=== PATIENT | female | born 1970 | race Caucasian/White ===

== ENCOUNTER → 2017-09-14 | Outpatient (CLI) | payer BC ==
[~2017-09-14] MED LIST: ASPI81TA28 PO; CLB/200 PO; LISI-787 PO; MEDR10TA PO; METH500T37 PO; RXC5 PO; VNTHFA/IN INH
[2017-09-14 17:24] LABS: BASO % 0.4 %; BASO ABS # 0.03 K/uL (0-0.2); COMPLETE YES; EOS % 8.4 %; HEMATOCRIT 39.9 % (37-47); IG% 0.3 %; LYMPH % 28.8 %; LYMPH ABS # 1.99 K/uL (1.2-3.4); MEAN CELL VOLUME 88.3 fL (80-100); MEAN CORPUSCULAR HEMOGLOBIN 28.8 pg (25-34); MEAN CORPUSCULAR HGB CONC 32.6 g/dl (32-36); MEAN PLATELET VOLUME 10.3 fL (7.4-10.4); MONO % 5.2 %; NEUT % 56.9 %; PLATELET COUNT 254 K/uL (130-400); RED BLOOD COUNT 4.52 M/uL (4.2-5.4)
[2017-09-14 17:53] LABS: BLOOD UREA NITROGEN 17 mg/dl (7-18); BUN/CREATININE RATIO 15.5 (10-20); CALCIUM 8.9 mg/dl (8.5-10.1); CARBON DIOXIDE 26 mmol/L (21-32); CHLORIDE 105 mmol/L (98-107); CREATININE 1.09 mg/dl (0.60-1.20); GLUCOSE 89 mg/dl (70-99); POTASSIUM 3.7 mmol/L (3.5-5.1); SODIUM 140 mmol/L (136-145)
== END | disposition home or self-care (01) ==
LOC: C.LAB 16:55
PROVIDERS: ATTEND Orthopaedic Surgery
DX: Z01.812 Encounter for preprocedural laboratory examination (principal); M16.10 Unilateral primary osteoarthritis, unspecified hip

== ENCOUNTER → 2017-09-21 | Day surgery (SDC) | payer BC ==
[2017-09-15 12:11] VITALS: Ht 160 cm; Wt 96.8 kg
[~2017-09-21] VITALS: Ht 160 cm; Wt 96.8 kg
[~2017-09-21] MED LIST changes: +ATROPINE SULFATE 0.1 MG/ML 5ML SYR IV PRN; +BUPIVACAINE 0.5 % 5 MG/1 ML MPF 30ML VIAL ONE; -CLB/200 PO; +CLINDAMYCIN PHOS 150 MG/ML 2 ML VIAL IV SCH; +DEXAMETHASONE SOD INJ 4 MG/ML VIAL ONE; +EpHEDrine SULFATE INJ 50 MG/ML AMP IV PRN; +FENTANYL CITRATE INJ 50 MCG/1 ML 2 ML VIAL IV PRN; +FENTANYL CITRATE INJ 50 MCG/1 ML 2 ML VIAL ONE; +LACTATED RINGER'S 1000ML 1,000 ML IV SCH; +LIDOCAINE HCL 2% 2 ML VIAL (20MG/ML) ONE; +LIDOCAINE HCL 2% LOCAL 20 ML VIAL ONE; -MEDR10TA PO; -METH500T37 PO; +MIDAZOLAM HCL 1 MG/ML 2ML VIAL ONE; +ONDANSETRON INJ 2 MG/ML 2 ML VIAL IV PRN; +ONDANSETRON INJ 2 MG/ML 2 ML VIAL ONE; +OXYC-57 PO; +OXYCODONE/ACETAMINOPHEN 5-325 TAB PO PRN; +PROPOFOL IV EMULSION 10 MG/ML 20 ML VIAL IV ONE; -RXC5 PO; +SODIUM CHLORIDE 0.9% 1000ML 1,000 ML IV SCH
--- NOTE | 2017-09-21 06:43 | History & Physical Bridge - [place] ---
H&P Re-Evaluation Bridge Note: I have examined the patient, reviewed the History & Physical and in the interval since the performance of the History & Physical I have noted the following changes of clinical significance: No changes noted
[2017-09-21 07:36] VITALS: TEMP 36.2
--- NOTE | 2017-09-21 07:36 | Discharge Instructions-SurgCtr ---
Discharge Instructions Date of Service Sep 21, 2017. Visit Reason for Visit: Right Hand Ganglion Cyst Discharge Discharge Diagnosis / Problem: SAME ABOVE Discharge Goals Goal(s): Decrease discomfort, Improve function Activity Recommendations Activity Limitations: as noted below Lifting Limitations: gradually increase as tolerated Exercise/Sports Limitations: until after follow-up appointment Shower/Bathe: keep incision dry Anesthesia . Post Anesthesia Instructions: If you have had General Anesthesia or IV Sedation: * Do not drive today. * Resume driving when surgeon permits. * Do not make important decisions or sign legal documents today. * Call surgeon for: 1. Temperature elevations greater than 101 degrees F. 2. Uncontrollable pain. 3. Excessive bleeding. 4. Persistent nausea and vomiting. 5. Medication intolerance (nausea, vomiting or rash). * For nausea and vomiting use only clear liquids such as: tea, soda, bouillon until nausea subsides, then gradually increase diet as tolerated. * If you have any concerns or questions, call your surgeon's office. If physician is unavailable and it is an emergency, call 911 or go to the nearest emergency room. . Instructions / Follow-Up Instructions / Follow-Up MEDICATIONS: * Resume previous medications unless instructed otherwise by your surgeon. * Always take pain medication on a full stomach or with food to avoid upset stomach. * Do not drink alcohol or drive while taking narcotics. * Ibuprofen or Tylenol may be taken if narcotic not needed. SPECIAL CARE INSTRUCTIONS: __ None _X_ Keep extremity elevated and iced x 48 hours; apply ice 20-30 minutes 8-10 times/day. May remove at night. __ Sling __24 hrs/day __ Remove at night __ Shoulder Immobilizer __ 24 hrs/day __ Remove at night _X_ Dressing __ Maintain until seen in office, may shower with plastic over site __ Remove dressings in 24-48 hours and then may shower __ Cover incisions with band-aids after showering __ Do not remove steri-strips KEEP INCISION AND DRESSING DRY AND INTACT FOR NEXT 5 DAYS. YOU CAN REMOVE DRESSING AFTER DAY 5 TO SHOWER. DRY AND COVER WITH BANDAID AFTERWARDS Call physician if chills or temperature rises above 102 degrees or pain unrelieved by prescribed pain medications at . . Diet Recommendations Home Diet: no limitations Procedures Procedures Performed: Right Hand Ganglion Cyst Excision Pending Studies Studies pending at discharge: no Medical Emergencies . Who to Call and When: Medical Emergencies: If at any time you feel your situation is an emergency, please call 911 immediately. . Non-Emergent Contact Non-Emergency issues call your: Primary Care Provider . . "Provider Documentation" section prepared by Tello Shah. .
--- NOTE | 2017-09-21 07:47 | OPERATIVE REPORT ---
DATE OF OPERATION: 09/21/2017 PREOPERATIVE DIAGNOSIS: Recurrent ganglion cyst of the right hand. POSTOPERATIVE DIAGNOSIS: Same. PROCEDURE: Excision ganglion cyst of the right hand. SURGEON: Tello Cunningham DO. PLAYERS ASSISTANT: Tello Shah PA-C, whose assistance was necessary for retraction and helping position the hand. ANESTHESIA: Local with sedation. COMPLICATIONS: None. CONDITION: Stable to PACU. INDICATIONS: Lisbeth is a pleasant 47-year-old female who has a history of multiple ganglions on her body. She had 1 removed from the dorsal aspect of her hand at an outside institution several years ago. Unfortunately, it returned. It is between the index and middle metacarpals and distorting the extensor mechanisms. It was becoming painful and she elected to undergo repeat excision. OPERATION AND FINDINGS: On 09/21/2017, she arrived at [facility] for the above procedure. She was seen in the preoperative holding area and the operative extremity was identified and signed. She was given a preoperative antibiotic, taken back to the operating room, laid on the table in supine position and given basic sedation. The right hand was then prepped and draped in sterile fashion. Time-out was done and the patient and operative extremity was properly identified. The surgical site was anesthetized with 2% lidocaine. The old incision was opened back up. Dissection was taken down through the fascia and a ganglion cyst was easily identified. Care was taken not to disrupt any of the neurovascular structures. It was fairly obvious where the ganglion communicated deep and because this is recurrent, a small 4-0 Vicryl suture was placed to close down the opening. This closed down nicely. The wound was then irrigated and closed with 4-0 nylon suture. She was placed in a soft dressing and taken to the postanesthesia care unit in stable condition. She tolerated the procedure well. I attest to the content of the Intraoperative Record and any orders documented therein. Any exception s are noted below.
[2017-09-21 08:04] VITALS: BP 107/72; PULSE 70; O2SAT 100
--- NOTE | 2017-09-21 08:14 | Anesthesia Progress Nt - [facility] ---
Anesthesia Post Op Note Date & Time Sep 21, 2017 at 08:14 Vital Signs Pain Intensity: 0 Vital Signs Past 12 Hours Date Time Temp Pulse Resp B/P (MAP) Pulse Ox O2 Delivery O2 Flow Rate FiO2 09/21/17 08:04 70 107/72 (84) 100 Room Air 09/21/17 07:36 36.2 12 109/73 (85) 97 Room Air 09/21/17 06:24 36.5 75 20 119/79 (92) 99 Room Air Notes Mental Status: alert / awake / arousable, participated in evaluation Pt Amnestic to Procedure: Yes Nausea / Vomiting: adequately controlled Pain: adequately controlled Airway Patency, RR, SpO2: stable & adequate BP & HR: stable & adequate Hydration State: stable & adequate Anesthetic Complications: no major complications apparent
--- NOTE | 2017-09-21 14:17 | [facility] Post Operative Brief Note ---
Immediate Operative Summary Operative Date Sep 21, 2017. Pre-Operative Diagnosis Right Hand Ganglion Cyst Post-Operative Diagnosis Same Procedure(s) Performed Right Hand Ganglion Cyst Excision Surgeon Dr. Manjinder Cunningham Machinist Supervisor Surgeon(s) Manjinder Shah PA-C Estimated Blood Loss 5 cc Findings as above Specimens None Complication(s) None Disposition Recovery Room / PACU
== END | disposition home or self-care (01) ==
LOC: X.SURG 06:16
PROVIDERS: ATTEND Orthopaedic Surgery
DX: M67.441 Ganglion, right hand (principal); I10 Essential (primary) hypertension

== ENCOUNTER → 2017-11-22 | Outpatient (CLI) | payer BC ==
[~2017-11-22] MED LIST changes: -ATROPINE SULFATE 0.1 MG/ML 5ML SYR IV PRN; -BUPIVACAINE 0.5 % 5 MG/1 ML MPF 30ML VIAL ONE; -CLINDAMYCIN PHOS 150 MG/ML 2 ML VIAL IV SCH; -DEXAMETHASONE SOD INJ 4 MG/ML VIAL ONE; -EpHEDrine SULFATE INJ 50 MG/ML AMP IV PRN; -FENTANYL CITRATE INJ 50 MCG/1 ML 2 ML VIAL IV PRN; -FENTANYL CITRATE INJ 50 MCG/1 ML 2 ML VIAL ONE; -LACTATED RINGER'S 1000ML 1,000 ML IV SCH; -LIDOCAINE HCL 2% 2 ML VIAL (20MG/ML) ONE; -LIDOCAINE HCL 2% LOCAL 20 ML VIAL ONE; -MIDAZOLAM HCL 1 MG/ML 2ML VIAL ONE; -ONDANSETRON INJ 2 MG/ML 2 ML VIAL IV PRN; -ONDANSETRON INJ 2 MG/ML 2 ML VIAL ONE; -OXYCODONE/ACETAMINOPHEN 5-325 TAB PO PRN; -PROPOFOL IV EMULSION 10 MG/ML 20 ML VIAL IV ONE; -SODIUM CHLORIDE 0.9% 1000ML 1,000 ML IV SCH
[2017-11-22 12:50] LABS: BASO % 0.6 %; BASO ABS # 0.03 K/uL (0-0.2); EOS % 6.1 %; EOS ABS # 0.31 K/uL (0-0.5); HEMATOCRIT 41.4 % (37-47); HEMOGLOBIN 13.8 g/dL (12.0-16.0); IG# 0.01 K/uL (0.00-0.02); LYMPH % 27.1 %; LYMPH ABS # 1.38 K/uL (1.2-3.4); MEAN CELL VOLUME 86.8 fL (80-100); MEAN CORPUSCULAR HEMOGLOBIN 28.9 pg (25-34); MEAN CORPUSCULAR HGB CONC 33.3 g/dl (32-36); MEAN PLATELET VOLUME 10.9 fL (7.4-10.4); MONO % 5.3 %; MONO ABS # 0.27 K/uL (0.11-0.59); NEUT % 60.7 %; PLATELET COUNT 264 K/uL (130-400); RED CELL DISTRIBUTION WIDTH CV 13.3 % (11.5-14.5); RED CELL DISTRIBUTION WIDTH SD 42.3 fL (36.4-46.3)
[2017-11-22 13:59] LABS: ALBUMIN 3.8 gm/dl (3.4-5.0); ALT/SGPT 31 U/L (12-78); AST/SGOT 22 U/L (15-37); BLOOD UREA NITROGEN 17 mg/dl (7-18); CALCIUM 9.1 mg/dl (8.5-10.1); CARBON DIOXIDE 26 mmol/L (21-32); CREATININE 0.99 mg/dl (0.60-1.20); GLUCOSE 96 mg/dl (70-99); SODIUM 136 mmol/L (136-145)
[2017-11-22 14:01] LABS: ALKALINE PHOSPHATASE 82 U/L (45-117); CHOLESTEROL 261 mg/dl (0-200); LDL CHOLESTEROL CALCULATED 180 mg/dl; TOTAL PROTEIN 7.4 gm/dl (6.4-8.2)
== END | disposition home or self-care (01) ==
LOC: C.LABPBG 10:55
PROVIDERS: ATTEND Nurse Practitioner Family
DX: Z13.1 Encounter for screening for diabetes mellitus (principal); Z13.220 Encounter for screening for lipoid disorders; I10 Essential (primary) hypertension

== ENCOUNTER 2017-12-28 09:51 | Observation (INO) | payer BC ==
[2017-12-21 10:30] VITALS: BMI 41.0
--- NOTE | 2017-12-21 11:05 | PAT Medication Instructions ---
Service Date Dec 21, 2017. Current Home Medication List Albuterol Hfa (Ventolin Hfa), 2-4 PUFFS INH Q6H PRN for SOB/Wheezing Aspirin (Aspirin Ec), 81 MG PO QAM Lisinopril/Hctz (Zestoretic 20MG/12.5MG), 0.5 TAB PO BID Medication Instructions For Your Scheduled Surgery - Check with surgeon for instructions: Aspirin (Aspirin Ec), 81 MG PO QAM - Hold the following medications the morning of surgery and the night prior to surgery: Lisinopril/Hctz (Zestoretic 20MG/12.5MG), 0.5 TAB PO BID - Take the following medications the morning of surgery with a sip of water: Albuterol Hfa (Ventolin Hfa), 2-4 PUFFS INH Q6H PRN for SOB/Wheezing (if needed) - Take the following medications as scheduled the night before surgery: Albuterol Hfa (Ventolin Hfa), 2-4 PUFFS INH Q6H PRN for SOB/Wheezing (if needed) If you have any questions please call us at [phone] or [phone] or [phone]
[2017-12-21 12:43] LABS: PTT PATIENT 27.9 SECONDS (21.0-31.0)
[~2017-12-28] VITALS: Ht 158.8 cm; Wt 105.0 kg
[2017-12-28] VITALS (7 sets, daily range): BP systolic 100–138; BP diastolic 67–79; PULSE 74–85; TEMP 36.2–36.8; O2SAT 93–100; Ht 158.8 cm; Wt 105.0 kg
[~2017-12-28 09:51] MED LIST changes: +ACETAMINOPHEN 1000 MG/100 ML IV IV ONE; +ATROPINE SULFATE 0.1 MG/ML 5ML SYR IV PRN; +CLINDAMYCIN 600 MG/54 ML D5W IV SCH; +EpHEDrine SULFATE INJ 50 MG/ML AMP IV PRN; +FENTANYL CITRATE INJ 50 MCG/1 ML 2 ML VIAL IV PRN; +FENTANYL CITRATE INJ 50 MCG/1 ML 2 ML VIAL ONE; +HYDROmorphone INJ 1 MG/ML SYR IV PRN; +HYDROmorphone INJ 2 MG/ML SYR/VIAL ONE; +LACTATED RINGER'S 1000ML 1,000 ML IV SCH; +LIDOCAINE HCL 2% 2 ML VIAL (20MG/ML) ONE; +METOCLOPRAMIDE HCL INJ 5 MG/ML 2 ML VIAL ONE; +MIDAZOLAM HCL 1 MG/ML 2ML VIAL ONE; +ONDANSETRON INJ 2 MG/ML 2 ML VIAL IV PRN; +ONDANSETRON INJ 2 MG/ML 2 ML VIAL ONE; -OXYC-57 PO; +PROPOFOL IV EMULSION 10 MG/ML 20 ML VIAL IV ONE
[2017-12-28] MEDS ORDERED: BUPIVACAINE 0.25% 30 ML VIAL ONE (10:05)
[2017-12-28] MEDS ORDERED: LIDOCAINE/EPINEPHRINE 1% 20 ML VIAL ONE (10:05)
--- NOTE | 2017-12-28 10:20 | History & Physical Bridge Note ---
H&P Re-Evaluation Bridge Note: I have examined the patient, reviewed the History & Physical and in the interval since the performance of the History & Physical I have noted the following changes of clinical significance: patient reports "pinched nerve" in back beginning Tuesday, discomfort improves when patient walks.
[2017-12-28] MEDS ORDERED: FENTANYL CITRATE INJ 50 MCG/1 ML 2 ML VIAL ONE ×2 (12:12→13:33)
[2017-12-28] MEDS ORDERED: PHENYLEPHRINE HCL INJ 10 MG/ML VIAL ONE (12:14)
[2017-12-28] MEDS ORDERED: KETAMINE HCL INJ 50 MG/ML 10 ML VIAL ONE (12:21)
[2017-12-28] MEDS ORDERED: EpHEDrine SULFATE INJ 50 MG/ML AMP ONE (12:38)
[2017-12-28] MEDS ORDERED: NEOSTIGMINE METHYLSULFATE 5 MG/5 ML SYR ONE (14:49)
[2017-12-28] MEDS ORDERED: GLYCOPYRROLATE INJ 0.2 MG/ML VIAL ONE (14:49)
--- NOTE | 2017-12-28 14:55 | [facility] Post Operative Brief Note ---
Immediate Operative Summary Operative Date Dec 28, 2017. Pre-Operative Diagnosis Bilateral Breast Hypertrophy Post-Operative Diagnosis Bilateral Breast Hypertrophy Procedure(s) Performed Bilateral Breast Reduction Surgeon Dr. Sanjana Luis Vice President Marketing & Development Surgeon(s) Sirisha Younger PA-C Estimated Blood Loss 25ML Findings Consistent with Post-Op Diagnosis Specimens Fresh Specimen: A.) Left Breast Tissue (802 grams) B.) Right Breast Tissue (630grams) both specimens sent out of room to lab by Carla Gtz OR jen at 1350 Drains NEEL x2 Anesthesia Type General Complication(s) none Disposition Disposition: Recovery Room / PACU
[2017-12-28] MEDS ORDERED: OXYCODONE/ACETAMINOPHEN 5-325 TAB PO PRN ×2 (15:30)
[2017-12-28] MEDS ORDERED: MoRPHine SULFATE 2 MG/ML CARP IV PRN (15:30)
[2017-12-28] MEDS ORDERED: PROMETHAZINE HCL INJ 12.5 MG in SODIUM CHLORIDE 0.9% 50ML 50 ML IV PRN (15:30)
[2017-12-28] MEDS ORDERED: DiphenhydrAMINE HCL 50 MG/ML VIAL IV PRN (15:30)
[2017-12-28] MEDS ORDERED: IV FLUIDS COMPLETED PRN (15:30)
[2017-12-28] MEDS ORDERED: MoRPHine SULFATE 4 MG/ML 1 ML CARP\\VIAL IV PRN ×2 (15:30)
[2017-12-28] MEDS ORDERED: OXAZEPAM 10MG CAP PO PRN (15:30)
[2017-12-28] MEDS ORDERED: ALBUTEROL HFA 8 GM INHALER INH PRN (15:30)
[2017-12-28] MEDS ORDERED: ACETAMINOPHEN 325 MG TAB PO PRN (15:30)
[2017-12-28] MEDS ORDERED: ONDANSETRON INJ 2 MG/ML 2 ML VIAL IV PRN (15:30)
--- NOTE | 2017-12-28 15:46 | Anesthesiology Progress Note ---
Anesthesia Post Op Note Date & Time Dec 28, 2017 at 15:46 Vital Signs Pain Intensity: 0 Vital Signs Past 12 Hours Date Time Temp Pulse Resp B/P (MAP) Pulse Ox O2 Delivery O2 Flow Rate FiO2 12/28/17 15:35 62 14 119/76 97 Nasal Cannula 3 12/28/17 15:25 61 16 148/85 96 Oxymask 10 12/28/17 15:15 69 17 128/69 97 Oxymask 10 12/28/17 15:05 36.0 88 12 145/82 97 Oxymask 10 12/28/17 10:22 36.8 84 16 120/78 (92) 95 Room Air Notes Mental Status: alert / awake / arousable, participated in evaluation Pt Amnestic to Procedure: Yes Nausea / Vomiting: adequately controlled Pain: adequately controlled Airway Patency, RR, SpO2: stable & adequate BP & HR: stable & adequate Hydration State: stable & adequate Anesthetic Complications: no major complications apparent
[2017-12-28] MEDS: LACTATED RINGER'S 1000ML 1,000 ML IV SCH (17:27)
[2017-12-28] MEDS: CLINDAMYCIN IV 600 MG in DEXTROSE 5% 50ML 50 ML IV SCH (17:53)
[2017-12-28] MEDS: LISINOPRIL/HCTZ 20/12.5MG TAB PO SCH (20:32)
[2017-12-29] MEDS: CLINDAMYCIN IV 600 MG in DEXTROSE 5% 50ML 50 ML IV SCH ×2 (02:15→09:30)
[2017-12-29 03:45] VITALS: BP 95/59; PULSE 74; TEMP 36.5; O2SAT 96
[2017-12-29] MEDS: LACTATED RINGER'S 1000ML 1,000 ML IV SCH (06:12)
[2017-12-29 07:11] VITALS: BP 98/63; PULSE 77; TEMP 36.9; O2SAT 93
--- NOTE | 2017-12-29 08:01 | Surgery Progress Note ---
Surgery Progress Note Date of Service Dec 29, 2017. Subjective Post OP Day: 1 + feeling well, + ambulating, + pain controlled, No complaints + vomiting last night, resolved since 8pm Objective Vital Signs: Date Time Temp Pulse Resp B/P (MAP) Pulse Ox O2 Delivery O2 Flow Rate FiO2 12/29/17 07:11 36.9 77 16 98/63 (75) 93 Room Air 12/29/17 03:45 36.5 74 16 95/59 (71) 96 Room Air 12/28/17 23:35 Room Air 12/28/17 22:19 36.5 75 18 100/67 (78) 98 Room Air 12/28/17 19:16 36.3 80 19 108/70 (83) 100 Room Air 12/28/17 18:10 36.3 85 19 117/77 (90) 93 Room Air 12/28/17 17:30 Room Air 12/28/17 17:08 36.3 75 18 123/78 (93) 97 Nasal Cannula 3.0 12/28/17 16:40 36.2 18 138/79 (98) 96 Nasal Cannula 3.0 12/28/17 16:10 95 Nasal Cannula 3.0 12/28/17 16:10 36.3 74 16 131/74 (93) 95 Nasal Cannula 3.0 12/28/17 16:10 Nasal Cannula 3.0 12/28/17 15:45 36.1 58 14 128/71 96 Nasal Cannula 3 12/28/17 15:35 62 14 119/76 97 Nasal Cannula 3 12/28/17 15:25 61 16 148/85 96 Oxymask 10 12/28/17 15:15 69 17 128/69 97 Oxymask 10 12/28/17 15:05 36.0 88 12 145/82 97 Oxymask 10 12/28/17 10:22 36.8 84 16 120/78 (92) 95 Room Air Physical Exam: Calin drainage (bloody and serous) General Appearance: WD/WN, no apparent distress Incision(s): clean, dry, intact, no erythema, findings (nipples pink and with sensation bilat) Laboratory Results: Results Past 24 Hours Test 12/28/17 10:07 Range/Units Bedside Urine Test NEG NEG Assessment & Plan s/p bilateral breast reduction POD# 1 drains removed d/c home after bfast f/u in office tomorrow
--- NOTE | 2017-12-29 08:03 | Discharge Instructions ---
Discharge Instructions Date of Service Dec 29, 2017. Admission Reason for Admission: Bilateral Symptomatic Macromastia Discharge Discharge Diagnosis / Problem: breast hypertrophy Discharge Goals Goal(s): Decrease discomfort, Improve function Activity Recommendations Activity Limitations: as noted below ACTIVITY RECOMMENDATIONS: __Normal activities _x_No bending, lifting or straining __No driving __Driving allowed when you are off pain medications __Walking permitted __You should have help at home for ___ days DRESSINGS: __No dressings required _x_Keep dressings dry/in place until first office visit __Remove dressings ___ and leave dressings off __Apply ice ___ days __Remove dressings and reapply garment __Apply antibiotic ointment (Bacitracin, Neosporin, etc) to wounds 3-4 times/ day for 10 days BATHING: _x_Keep dressings dry _x_Sponge bathing permitted __Showering permitted _x_No swimming, hot tubs or soaking in a tub. No showers until instructed OK MEDICATIONS: Resume previous medications unless instructed otherwise by your surgeon. _x_Do not use aspirin, Motrin, Advil or Ibuprofen as these may promote bleeding. Please use Tylenol. _x_Prescription(s) provided: pain medication was provided at your last office visit OTHER INSTRUCTIONS: __Record drain output 2-3 times per day SPECIAL CARE INSTRUCTIONS: * It is normal to have a mild fever after surgery. If your temperature is higher than 101.5 degrees F, please call the office at [phone]. * Constipation is a typical side effect of pain medication. An over-the- counter stool softener will help relieve this. * Leaking around surgical drains may occur and should not cause concern. Sometimes these drains become clogged. If this happens, remove the bulb and milk the clot out of the tube, then replace the bulb. * Drainage from wounds after liposuction is normal and should be expected. Garments will become soiled. You should protect furniture and bedding. This drainage should mostly subside within 2-3 days. Leave garments in place unless instructed to remove them. * If you have unusual drainage from a wound or are concerned you have an infection or have any questions or concerns, please call the office at [phone]. FOLLOW UP VISIT: If not already scheduled, please call the office, , when you return home after surgery to schedule an appointment to be seen in __1_ days. . Current Hospital Diet Patient's current hospital diet: Regular Diet Discharge Diet Recommended Diet: Regular Diet Procedures Procedures Performed: Bilateral Breast Reduction Pending Studies Studies pending at discharge: yes List of pending studies: pathology Laboratory Results Lipid Panel Test 11/22/17 10:58 Range/Units Triglycerides Level 152 H 0-150 mg/dl Cholesterol Level 261 H 0-200 mg/dl HDL Cholesterol 51 mg/dl Cholesterol/HDL Ratio 5.1 LDL Cholesterol, Calculated 180 mg/dl Medical Emergencies . Who to Call and When: Medical Emergencies: If at any time you feel your situation is an emergency, please call 911 immediately. . Non-Emergent Contact Non-Emergency issues call your: Primary Care Provider, Surgeon . "Provider Documentation" section prepared by Sirisha Younger. Jackelin PA Drug Monitoring Program Search Results: no issues identified
[2017-12-29 08:17] VITALS: BP 98/63; PULSE 77; TEMP 36.9; O2SAT 93
[2017-12-29 08:35] VITALS: BP 107/69
[2017-12-29] MEDS: LISINOPRIL/HCTZ 20/12.5MG TAB PO SCH (08:37)
[2017-12-29] MEDS ORDERED: MULTIVITAMIN TAB PO SCH (09:00)
[2017-12-29] MEDS ORDERED: ENOXAPARIN 40 MG/0.4 ML SYR SQ SCH (09:00)
--- NOTE | 2017-12-29 09:46 | OPERATIVE REPORT ---
DATE OF OPERATION: 12/28/2017 PREOPERATIVE DIAGNOSIS: Bilateral symptomatic macromastia. POSTOPERATIVE DIAGNOSIS: Same. PROCEDURE: Bilateral reduction mammoplasty. SURGEON: Sanjana Luis MD CLINICAL EDUCATION COORDINATOR: Sirisha Younger PA-C. ANESTHESIA: General. COMPLICATIONS: None. INDICATION FOR THE PROCEDURE: The patient is a 47-year-old female who presented to my office with complaints of macromastia back, neck, shoulder pain and arm numbness. She desired to undergo breast reduction. BRIEF DESCRIPTION OF THE PROCEDURE: Risks, benefits, and alternatives of the procedure were explained to the patient who agreed and signed consent. She was identified and marked in the preoperative holding area. She was brought to the operating room where she was positioned supine and placed under general anesthesia without incident. Surgical site was prepped and draped sterilely. A time-out procedure was performed. I began with the left side. Markings were assessed and an 8 cm pedicle was marked. 1% lidocaine with epinephrine was used to anesthetize the planned incisions. A 42 mm cookie cutter was used to circumscribe the nipple areolar complex. Previously marked 8 cm pedicle was incised using a 15 blade scalpel and deepithelialized. I began with the medial dissection of the pedicle using electrocautery. Cautery was used to incise through dermis and breast parenchyma down to the chest wall, taking care not to undermine the pedicle during dissection. A similar procedure was undertaken on the lateral aspect of the pedicle again taking care not to undermine. Lastly, the pedicle was dissected out superiorly using electrocautery and this was carried down to the chest wall as well. I then began with excision of the medial breast tissue followed by lateral aspect of the breast tissue and surrounding keyhole incision. A 15 blade scalpel was used to make the inframammary fold incision and electrocautery was used to deepen the incision through dermis and breast parenchyma. Dissection was then carried superiorly to the level of the superior incision. Superior incision was then incised using a 15 blade scalpel and again dissected using electrocautery. This was undertaken laterally on the bed around the keyhole portion of the incision. Care was taken to leave some fat on the lateral pectoralis fascia in order to preserve the T4 intercostal nerve. Hemostasis was achieved using electrocautery. Specimen was passed off in its entirety for weighing. Additional resection was undertaken laterally and superiorly in order to facilitate closure of the breast. The total resection weight of the left breast was 802 grams. Wound was irrigated with saline and hemostasis was achieved with electrocautery. 0.25% Marcaine plain was used to anesthetize the incisions as well as pectoralis fascia. A 15 Gambian Calin drain was brought out through a separate stab incision. The nipple areolar complex was brought into the keyhole using 2-0 Vicryl deep dermal suture. Wound was closed first in a lateral to mid breast direction and then medial to mid breast direction using 2-0 Vicryl deep dermal sutures. Vertical limb was also approximated using 2-0 Vicryl deep dermal sutures and nipple areolar complex was inset using 2-0 Vicryl deep dermal sutures. Next, the superficial dermal layer was closed using 2-0 PDO running Quill suture along the inframammary fold and 3-0 PDS interrupted dermal sutures along the vertical limb and nipple areolar complex. Lastly, 3-0 Monocryl running subcuticular suture was placed along all incisions. A similar procedure was undertaken on the right side which was the smaller side. Maximal excision weight was 630 grams. Following completion of the procedure, the breasts were reasonably symmetric in both nipple areolar complexes were pink and viable following wound closure. Dermabond Prineo was applied along the inframammary fold incision and vertical limb incision. Dermabond was placed around the nipple areolar complex. The patient was awakened and transferred to recovery in satisfactory condition. Sirisha Younger PA-C was present and scrubbed throughout the entire procedure and was instrumental in providing retraction during dissection of the pedicle and assisting in simultaneous wound closure. I attest to the content of the Intraoperative Record and any orders documented therein. Any exception s are noted below.
--- NOTE | 2017-12-30 14:01 | Discharge Summary ---
Discharge Summary Date of Service Dec 30, 2017. Admission Date/Reason Dec 28, 2017 at 10:10 Bilateral Symptomatic Macromastia. Discharge Date/Disposition Dec 29, 2017 Home Diagnosis Principal Diagnosis: breast macromastia Procedure(s) Performed breast hypertrophy Medication Reconciliation Continued Medications: Albuterol Hfa (Ventolin Hfa) 200 Puffs/53177 Mcg Aers 2-4 PUFFS INH Q6H PRN for SOB/Wheezing Lisinopril/Hctz (Zestoretic 20MG/12.5MG) Tab 0.5 TAB PO BID Discontinued Medications: Aspirin (Aspirin Ec) 81 Mg Tab 81 MG PO QAM Admission Physical Exam As per Admitting History & Physical. Hospital Course Patient presented to same day surgery with a history of breast hypertrophy. She was taken to the OR and underwent bilateral breast reduction surgery. There were no intraoperative complications. She was taken to recovery and transferred to med/surg for observation. On POD#1 she had good pain control. Her drains were removed. On exam, the patient's incisions are clean, dry, and intact. Her nipples are pink and with sensation bilaterally. She was discharged home with instructions to follow-up in the office the next day. Discharge Instructions Please refer to the electronic Patient Visit Report (Discharge Instructions) for additional information.
== END 2017-12-29 13:20 | disposition home or self-care (01) ==
LOC: EEVIPCON 09:51 → C.ACU 09:51 → C.MSN 10:10 → ENRESERV 15:45
PROVIDERS: ADMIT Plastic Surgery; ATTEND Plastic Surgery
DX: N62 Hypertrophy of breast (principal); E78.00 Pure hypercholesterolemia, unspecified; I10 Essential (primary) hypertension; J20.9 Acute bronchitis, unspecified; E66.01 Morbid (severe) obesity due to excess calories; M19.90 Unspecified osteoarthritis, unspecified site; Z86.718 Personal history of other venous thrombosis and embolism; Z96.649 Presence of unspecified artificial hip joint; Z90.89 Acquired absence of other organs; Z83.6 Family history of other diseases of the respiratory system; Z82.49 Family history of ischemic heart disease and other diseases of the circulatory system; Z84.1 Family history of disorders of kidney and ureter; Z80.8 Family history of malignant neoplasm of other organs or systems; Z79.82 Long term (current) use of aspirin; Z88.0 Allergy status to penicillin; Z91.040 Latex allergy status; Z90.49 Acquired absence of other specified parts of digestive tract; Z87.442 Personal history of urinary calculi

== ENCOUNTER → 2018-06-13 | Outpatient (CLI) | payer BC ==
[~2018-06-13] MED LIST changes: -ACETAMINOPHEN 1000 MG/100 ML IV IV ONE; -ASPI81TA28 PO; -ATROPINE SULFATE 0.1 MG/ML 5ML SYR IV PRN; -CLINDAMYCIN 600 MG/54 ML D5W IV SCH; -EpHEDrine SULFATE INJ 50 MG/ML AMP IV PRN; -FENTANYL CITRATE INJ 50 MCG/1 ML 2 ML VIAL IV PRN; -FENTANYL CITRATE INJ 50 MCG/1 ML 2 ML VIAL ONE; -HYDROmorphone INJ 1 MG/ML SYR IV PRN; -HYDROmorphone INJ 2 MG/ML SYR/VIAL ONE; -LACTATED RINGER'S 1000ML 1,000 ML IV SCH; -LIDOCAINE HCL 2% 2 ML VIAL (20MG/ML) ONE; -METOCLOPRAMIDE HCL INJ 5 MG/ML 2 ML VIAL ONE; -MIDAZOLAM HCL 1 MG/ML 2ML VIAL ONE; -ONDANSETRON INJ 2 MG/ML 2 ML VIAL IV PRN; -ONDANSETRON INJ 2 MG/ML 2 ML VIAL ONE; -PROPOFOL IV EMULSION 10 MG/ML 20 ML VIAL IV ONE
[2018-06-13 13:40] LABS: ALBUMIN 3.6 gm/dl (3.4-5.0); ALKALINE PHOSPHATASE 81 U/L (45-117); ALT/SGPT 25 U/L (12-78); AST/SGOT 19 U/L (15-37); BLOOD UREA NITROGEN 15 mg/dl (7-18); CALCIUM 8.8 mg/dl (8.5-10.1); CARBON DIOXIDE 29 mmol/L (21-32); CHOLESTEROL 213 mg/dl (0-200); CREATININE 1.05 mg/dl (0.60-1.20); GLUCOSE 102 mg/dl (70-99); LDL CHOLESTEROL CALCULATED 138 mg/dl; SODIUM 137 mmol/L (136-145); TOTAL PROTEIN 7.1 gm/dl (6.4-8.2)
== END | disposition home or self-care (01) ==
LOC: C.LABPBG 09:31
PROVIDERS: ATTEND Nurse Practitioner Family
DX: I10 Essential (primary) hypertension (principal); E78.00 Pure hypercholesterolemia, unspecified